=== PATIENT | female | born 2000 | race Caucasian/White ===

== ENCOUNTER 2020-05-19 16:47 | Emergency (ER) | payer OTHER, SELFPAY ==
--- NOTE | ~2020-05-19 | XR_ITS ---
EXAMINATION: XR chest 1V portable DATE: 05/19/2020 18:02 INDICATION: Fever. TECHNIQUE: A single frontal view of the chest was obtained. COMPARISON: None. FINDINGS: The chest demonstrates clear lungs without pneumonia, pleural effusion, or pneumothorax. Th e heart size is normal. IMPRESSION: 1. No acute cardiopulmonary disease. Reviewed, dictated and finalized at location A. [employer] OPERATOR
[2020-05-19 16:59] VITALS: BP 107/67; PULSE 76; RESP 16; TEMP 37.6; O2SAT 99
--- NOTE | 2020-05-19 17:49 | ED.GENADULT ---
HPI - General Adult General Chief complaint: Fever Stated complaint: fever/wants covid test Time Seen by Provider: 05/19/20 17:01 Source: patient Mode of arrival: ambulatory Limitations: no limitations History of Present Illness HPI narrative: Patient is a 19-year-old female who presents with congestion rhinorrhea fever headache for less than a day patient denies sick contacts has not taken anything for her symptoms denies dyspnea chest pain shortness of breath diarrhea vomiting or other complaints presents in no distress Related Data Allergies Allergy/AdvReac Type Severity Reaction Status Date / Time No Known Allergies Allergy Verified 05/19/20 18:27 Review of Systems Review of Systems: All systems reviewed & are unremarkable except as noted in HPI and below PMFSH Social History Social History (Updated 05/19/20 @ 17:50 by Hill Maldonado PA-C) Smoking status: Never smoker Exam Narrative: Exam Narrative: GENERAL: Well-appearing, well-nourished, and in no acute distress. HEAD: Normocephalic, atraumatic. EYES: PERRLA and EOMI. ENT: Nares clear, no rhinorrhea or epistaxis. Mucous membranes moist. CHEST: Clear to auscultation. No respiratory distress. No wheezes rales or rhonchi HEART: Regular rate and rhythm. No murmur heard. EXTREMITIES: Normal range of motion. No edema. SKIN: Warm, dry, no rash. NEURO: No focal deficits. Alert and oriented x3. PSYCH: Normal mood and affect. Course Course Emergency Course: Patient in the room at this time aware of case findings treatment plan diagnosis agreeing to follow with primary care for her results patient in the room in no distress otherwise resting comfortably normal vital signs no pneumonia Vital Signs Vital signs: Vital Signs Temperature 99.6 F 05/19/20 16:59 Pulse Rate 76 05/19/20 16:59 Respiratory Rate 16 05/19/20 16:59 Blood Pressure 107/67 05/19/20 16:59 Pulse Oximetry 99 05/19/20 16:59 Temperature 99.6 F 05/19/20 16:59 Pulse Rate 76 05/19/20 16:59 Respiratory Rate 16 05/19/20 16:59 Blood Pressure 107/67 05/19/20 16:59 Pulse Oximetry 99 05/19/20 16:59 Medical Decision Making MDM Narrative Medical decision making narrative: Patient with upper respiratory symptoms tested for Covid will be discharged home aware of case findings treatment plan diagnosis felt appropriate for outpatient reevaluation given reasons to return no pneumonia seen on exam Vital Signs Vital Signs: Vital Signs Temperature 99.6 F 05/19/20 16:59 Pulse Rate 76 05/19/20 16:59 Respiratory Rate 16 05/19/20 16:59 Blood Pressure 107/67 05/19/20 16:59 Pulse Oximetry 99 05/19/20 16:59 Temperature 99.6 F 05/19/20 16:59 Pulse Rate 76 05/19/20 16:59 Respiratory Rate 16 05/19/20 16:59 Blood Pressure 107/67 05/19/20 16:59 Pulse Oximetry 99 05/19/20 16:59 Lab Data Labs: Lab Results 05/19/20 05/19/20 Range/Units 17:47 18:18 Urine Color Pending Urine Appearance Pending Urine pH Pending Ur Specific [place] Pending Urine Protein Pending Urine Glucose (UA) Pending Urine Ketones Pending Ur Blood (Man) Pending Urine Nitrate Pending Urine Bilirubin Pending Urine Urobilinogen Pending Leukocyte Esterase Rfl Pending SARS-CoV-2 RNA (RT-PCR) Pending Discharge Plan Discharge Clinical Impression: Acute upper respiratory infection Patient Disposition: Home, Self-Care Condition: Stable Instructions: Antibiotic Form, COVID-19 (Coronavirus Disease 2019) (ED) Additional Instructions: Follow up with your primary care provider within 1-2 days to set up for reevaluation and to obtain your COVID-19 results. Go to ER for shortness of breath, difficulty breathing, chest pain, fever/chills, weakness, nauseau/vomitting, etc. or any other concerns. Self quarantine until you have received your COVID-19 results and been advised otherwise by primary care stay well-h
[2020-05-19] MEDS: ACETAMINOPHEN 500 MG TABLET 1000 MG PO (18:26)
[2020-05-19 18:36] LABS: Add Urine Microscopic? YES; Appearance Urine Clear (Clear); Bilirubin Urine Negative (Negative); Blood Urine Negative (Negative); Color Urine Yellow (Yellow); Glucose Urine UA Negative (Negative); Ketones Urine 1+ mg/dL (Negative); Leukocyte Esterase Ur Negative LEU/UL (Negative); Mucus Urine Few /lpf; Nitrate Urine Negative (Negative); Protein Urine Negative (Negative); Specific Grav Ur 1.028 (1.001-1.035); Squamous Epithelial Cell Urine Few /hpf (Few); Urobilinogen Urine Negative mg/dL (<2.0); WBC Urine 0-3 /hpf
[2020-05-19 19:25] VITALS: BP 117/60; BP 122/78; PULSE 70; PULSE 80; RESP 18; TEMP 36.8; O2SAT 99
[2020-05-20 17:04] LABS: SARS-CoV-2 RNA PCR Positive
== END 2020-05-19 19:26 | disposition home or self-care (01) ==
PROVIDERS: Emergency Medicine Emergency Medical Services; Emergency Provider Emergency Medicine
DX: U07.1 COVID-19 (principal)
CPT/HCPCS: 71045; 81001; 87635; 99283; A9270; C9803; U0003